=== PATIENT | female | born 1985 | race Caucasian/White ===

== ENCOUNTER → 2016-12-22 | Outpatient (CLI) | payer MEDICARE | LOC: OPSV 17:57 | DX: G43.109 Migraine with aura, not intractable, without status migrainosus (principal); R11.0 Nausea | CPT/HCPCS: 96372; J1885; J2300; J2550 ==

== ENCOUNTER 2021-01-22 22:25 | Emergency (ER) | payer OTHER ==
[~2021-01-22 22:25] MED LIST: CYCLOBENZAPRINE5 MG PO; MECLIZINE HCL25 MG PO; MOBIC15 MG PO; NAPROSYN500 MG PO; ZOFRAN4 MG PO
[2021-01-22 23:24] LABS: HEMOGLOBIN 14.3 gm/dl (12.3-15.3); RED BLOOD COUNT 4.71 M/UL (4.00-5.10); WHITE BLOOD COUNT 19.9 K/UL (4.5-11.0)
[2021-01-22 23:45] LABS: BUN/CREATININE RATIO 11 (0-10)
== END 2021-01-23 04:22 | disposition home or self-care (01) ==
LOC: ER1 22:25
PROVIDERS: Family Medicine
DX: R07.89 Other chest pain (principal); E87.6 Hypokalemia; D72.829 Elevated white blood cell count, unspecified; F12.10 Cannabis abuse, uncomplicated; F17.290 Nicotine dependence, other tobacco product, uncomplicated; Z90.49 Acquired absence of other specified parts of digestive tract; Z88.8 Allergy status to other drugs, medicaments and biological substances
CPT/HCPCS: 71045; 80053; 80307; 81001; 82550; 82553; 83874; 84484; 84703; 85025; 93005; 99285

== ENCOUNTER 2021-02-03 09:26 | Emergency (ER) | payer OTHER ==
[2021-02-03 10:17] LABS: HEMOGLOBIN 13.8 gm/dl (12.3-15.3); RED BLOOD COUNT 4.58 M/UL (4.00-5.10); WHITE BLOOD COUNT 8.8 K/UL (4.5-11.0)
[2021-02-03 10:39] LABS: BUN/CREATININE RATIO 15 (0-10)
[2021-02-03] MEDS ORDERED: IBUPROFEN600 MG PO (13:17)
[2021-02-03] MEDS ORDERED: ZOFRAN4 MG PO (13:17)
== END 2021-02-03 13:36 | disposition home or self-care (01) ==
LOC: ER1 09:26
PROVIDERS: Physician Assistant Medical
DX: R51.9 Headache, unspecified (principal); Z04.9 Encounter for examination and observation for unspecified reason; F17.290 Nicotine dependence, other tobacco product, uncomplicated; Z79.899 Other long term (current) drug therapy
CPT/HCPCS: 70450; 71045; 80053; 81001; 82550; 82553; 83874; 84484; 85025; 85379; 85610; 93005; 96374; 96375; 99284; J1200; J1885; J2765

== ENCOUNTER 2021-05-12 10:41 | Emergency (ER) | payer OTHER ==
[~2021-05-12 10:41] MED LIST changes: +IBUPROFEN600 MG PO
[2021-05-12] MEDS ORDERED: PERCOCET 5-3251 EACH PO (11:57)
== END 2021-05-12 12:08 | disposition home or self-care (01) ==
LOC: ER1 10:41
DX: L02.412 Cutaneous abscess of left axilla (principal)
CPT/HCPCS: 99282

== ENCOUNTER 2021-06-14 15:55 | Emergency (ER) | payer OTHER ==
[~2021-06-14 15:55] MED LIST changes: +PERCOCET 5-3251 EACH PO
== END 2021-06-14 19:00 | disposition home or self-care (01) ==
LOC: ER1 15:55
DX: U07.1 COVID-19 (principal); J02.9 Acute pharyngitis, unspecified; Z90.49 Acquired absence of other specified parts of digestive tract; F17.290 Nicotine dependence, other tobacco product, uncomplicated
CPT/HCPCS: 86403; 87081; 87880; 99283; U0003

== ENCOUNTER 2021-11-18 05:20 | Emergency (ER) | payer OTHER ==
[2021-11-18 06:23] LABS: HEMOGLOBIN 13.9 gm/dl (12.3-15.3); RED BLOOD COUNT 4.54 M/UL (4.00-5.10)
[2021-11-18 06:41] LABS: BUN/CREATININE RATIO 16 (0-10)
[2021-11-18] MEDS ORDERED: ZOFRAN ODT 4 MG4 MG PO (08:33)
== END 2021-11-18 08:47 | disposition home or self-care (01) ==
LOC: ER1 05:20
PROVIDERS: Emergency Medicine
DX: R10.13 Epigastric pain (principal); R11.2 Nausea with vomiting, unspecified; R19.7 Diarrhea, unspecified; T45.0X5A Adverse effect of antiallergic and antiemetic drugs, initial encounter
CPT/HCPCS: 80053; 81001; 83690; 84703; 85025; 87086; 94664; 96374; 96375; 96376; 99284; J1200; J1885; J2405; J2930; Q9967

== ENCOUNTER → 2022-02-22 | Outpatient (CLI) | payer OTHER ==
[~2022-02-22] MED LIST changes: +ZOFRAN ODT 4 MG4 MG PO
== END ==
LOC: KOH-I 09:34
DX: M47.26 Other spondylosis with radiculopathy, lumbar region (principal)
CPT/HCPCS: 72100

== ENCOUNTER → 2022-05-12 | Outpatient (CLI) | payer OTHER | LOC: KOH-I 08:06 | DX: M51.16 Intervertebral disc disorders with radiculopathy, lumbar region (principal); M51.27 Other intervertebral disc displacement, lumbosacral region | CPT/HCPCS: 72148 ==